=== PATIENT | male | born 1960 | race African-American/Black ===

== ENCOUNTER 2016-07-07 03:49 | Emergency (ER) | payer BC ==
[~2016-07-07] VITALS: Ht 172.7 cm; Wt 104.3 kg
[~2016-07-07 03:49] MED LIST: ACCUNEB SO1.25 MG/1 INH; ACID REDUCER PO; ADVAIR 250-501 EACH INH; ALBUTEROL INHAL17 GM IH; ALBUTEROL2.5 MG/0.5 INH; ALBUTEROL2.5 MG/31 INH; AMLODIPINE BESY10 MG PO; CHOLESTEROL; IBUPROFEN 600600 M1 PO; NEBULIZER MISCELL; NO HOME MEDS; NOHOMEMEDICATIONS; NORCO 5-325 TA1 EACH PO; PREDNISONE 10 M10 MG PO; PREDNISONE 20 M20 MG PO; PREDNISONE50 MG PO; VALIUM2 MG PO; VENTOLIN HFA 1818 GM INH
[2016-07-07] MEDS ORDERED: PREDNISONE 20 M20 MG PO (04:32)
[2016-07-07] MEDS ORDERED: ALBUTEROL2.5 MG/31 INH (04:32)
[2016-07-07] MEDS ORDERED: VENTOLIN HFA 1818 GM INH (04:32)
== END 2016-07-07 05:04 | disposition home or self-care (01) ==
LOC: ER 03:49
DX: J45.901 Unspecified asthma with (acute) exacerbation (principal); Z76.0 Encounter for issue of repeat prescription